=== PATIENT | female | born 1935 | race Caucasian/White ===

== ENCOUNTER 2017-05-09 09:12 | Outpatient (CLI) | payer MEDICARE, MEDICAID ==
[2017-05-09 11:23] LABS: #Basophils 0.1 thou/uL (0.0-0.2); #Eosinphils 0.4 thou/uL (0.0-0.7); #Lymphocytes 1.6 thou/uL (1.20-3.40); #Monocytes 0.6 thou/uL (0.11-0.59); #Neutrophils 5.1 thou/uL (1.40-6.50); %Basophils 1.3 % (0.0-1.0); %Eosinophils 5.6 % (0.0-10.0); %Lymphocytes 19.9 % (21.0-51.0); %Monocytes 7.9 % (0.0-10.0); %Neutrophils 65.3 % (42.0-75.0); Hemoglobin 14.9 g/dL (12.0-16.0); Mean Corpuscular Hemoglobin 30.9 pg (27.0-31.0); Mean Corpuscular Volume 90.8 fl (81.0-99.0); Mean Platelet Volume 6.5 fL (7.4-10.4); Platelet Count 246 thou/uL (130-400); RBC Distribution Width 12.8 % (11.5-14.5); Red Blood Cell (RBC) Count 4.82 mill/uL (4.20-5.40); White Blood Cell (WBC) Count 7.8 thou/uL (4.8-10.8)
[2017-05-09 11:34] LABS: ALT (SGPT) 20 U/L (8-55); AST (SGOT) 17 U/L (5-34); Albumin 4.1 g/dL (3.4-4.8); Alkaline Phosphatase 98 U/L (40-150); Anion Gap 15 mmol/L (10-20); BUN (Urea Nitrogen) 15 mg/dL (9.8-20.1); Bilirubin, Total 0.6 mg/dL (0.2-1.2); Calc. Creatinine Clearance 0 mL/min (70-130); Calcium 9.2 mg/dL (7.8-10.44); Carbon Dioxide 27 mmol/L (23-31); Cardiac Risk 3.7 (Less than 4.5); Chloride 101 mmol/L (98-107); Cholesterol 194 mg/dl (< 200 Desired); Estimated GFR-MDRD 53; Globulin 2.9 g/dL (2.4-3.5); Glucose 99 mg/dL (83-110); HDL Cholesterol 52 mg/dL (>60 Neg Risk); LDL Cholesterol, Calculated 103 mg/dL; Potassium 4.3 mmol/L (3.5-5.1); Sodium 139 mmol/L (136-145); Triglycerides 193 mg/dL (Less than 150)
== END 2017-05-09 09:13 | disposition home or self-care (01) ==
LOC: HPCALD 09:12
PROVIDERS: ATTEND Family Medicine
DX: I25.10 Atherosclerotic heart disease of native coronary artery without angina pectoris (principal); I10 Essential (primary) hypertension
CPT/HCPCS: 36415; 80053; 80061; 84443; 85025

== ENCOUNTER 2017-06-18 12:03 | Outpatient (CLI) | payer MEDICARE, MEDICAID ==
--- NOTE | 2017-06-18 21:25 | RAD ---
LUMBAR SPINE FIVE VIEWS 06/18/17 The bones are osteoporotic which make fine detail difficult to see in this patient. On the lateral v iew, there appears to be some very slight compression and sclerosis of the superior end plate of L1. I cannot tell if this new or old. No old films were available for comparison. Slight anterolisthesi s of L3 on L4 appears to be due to facet arthritis which is significant here, but even worse at L4-L 5 where there is also some anterolisthesis. Slight disc space narrowing is seen at L4-L5. The remain murtaza of the spine shows some mild arthritic change. Very dense calcification of the aorta is noted. N o abnormalities of the SI joints were appreciated. IMPRESSION: 1. Osteoporosis limits fine detail. 2. Slight compression of superior end plate of L3, age indeterminate. MRI could date this jordan r if that is possible. 3. Extensive degenerative changes, worse in the facet joints at L4-L5. Other findings as listed above. POS: HOME
== END 2017-06-18 12:04 | disposition home or self-care (01) ==
LOC: BURRAD 12:03
PROVIDERS: ATTEND Family Medicine
DX: S30.0XXA Contusion of lower back and pelvis, initial encounter (principal); M47.816 Spondylosis without myelopathy or radiculopathy, lumbar region; M81.0 Age-related osteoporosis without current pathological fracture; G95.20 Unspecified cord compression
CPT/HCPCS: 72110

== ENCOUNTER 2017-08-26 08:32 | Outpatient (CLI) | payer MEDICARE, MEDICAID ==
--- NOTE | 2017-08-26 22:57 | CT ---
CT OF THE ABDOMEN WITHOUT CONTRAST: Date: 08-26-[address] of the abdomen was performed. Axial slices were acquired and then coronal and sagit canelo reconstructions were done. FINDINGS: There are numerous calcified granulomas in a normal sized spleen. The liver has one or two small joel cifications in it. The liver is normal in size. There is no sign of mass, dilated ducts, or other pa thological change. It is normal in appearance. The gallbladder does have gallstones in it, however. The lung bases are clear. No renal masses are seen. Renal calcifications are actually probably all v ascular in nature. The patient has severe arterial sclerosis which extends well out into the renal v essels. The adrenal glands appear normal. The pancreas is very atrophic with no mass seen. The aorta is densely calcified. Its maximal diameter at the aortic hiatus is about 3 cm. It dilates slightly in the mid-abdominal region and has a maximal diameter of 2.2 cm just above the bifurcation. Both co mmon iliac arteries are densely calcified. Degenerative changes are seen in the visible portions of the lumbar spine. There is anterior russ sharon fracture of L3 which has compressed somewhat further since the study of 06-25-17 done at [facility]. There is slight retrolisthesis of the vertebrae as before. The AP diameter of the spinal ca nal at this level narrows to about 9 mm. IMPRESSION: 1. Normal hepatic size with no intrahepatic abnormality seen. Some calcified granulomas in the liver and spleen, primarily the spleen. 2. Gallstones. 3. Severe arteriosclerosis. 4. Known L3 compression fracture which has compressed slightly further than on the 06-16-17. POS: HOME
== END 2017-08-26 08:33 | disposition home or self-care (01) ==
LOC: BURCT 08:32
PROVIDERS: ATTEND Internal Medicine Gastroenterology
DX: R79.89 Other specified abnormal findings of blood chemistry (principal); D73.89 Other diseases of spleen; K76.89 Other specified diseases of liver; K80.20 Calculus of gallbladder without cholecystitis without obstruction; I70.90 Unspecified atherosclerosis; S32.039S Unspecified fracture of third lumbar vertebra, sequela
CPT/HCPCS: 74150

== ENCOUNTER 2018-05-03 12:12 | Emergency (ER) | payer MEDICARE, MEDICAID ==
[2018-05-03 12:51] LABS: Hemoglobin 6.8 g/dL (12.0-16.0); Mean Corpuscular Hemoglobin 21.2 pg (27.0-31.0); Mean Corpuscular Volume 66.4 fL (78.0-98.0); Mean Platelet Volume 5.3 fL (7.4-10.4); Platelet Count 500 thou/uL (130-400); RBC Distribution Width 14.7 % (11.5-14.5); Red Blood Cell (RBC) Count 3.18 mill/uL (4.20-5.40); White Blood Cell (WBC) Count 6.8 thou/uL (4.8-10.8)
[2018-05-03 13:06] LABS: ALT (SGPT) 8 U/L (8-55); AST (SGOT) 11 U/L (5-34); Albumin 3.7 g/dL (3.4-4.8); Alkaline Phosphatase 71 U/L (40-150); Anion Gap 15 mmol/L (10-20); BUN (Urea Nitrogen) 13 mg/dL (9.8-20.1); Bilirubin, Total 0.6 mg/dL (0.2-1.2); Calc. Creatinine Clearance 0 mL/min (70-130); Carbon Dioxide 27 mmol/L (23-31); Chloride 96 mmol/L (98-107); Estimated GFR-MDRD 44; Globulin 3.9 g/dL (2.4-3.5); Glucose 120 mg/dL (83-110); Potassium 4.3 mmol/L (3.5-5.1); Protein, Total 7.6 g/dL (6.0-8.3); Sodium 134 mmol/L (136-145)
[2018-05-03 13:12] LABS: #Basophils 0.1 thou/uL (0.0-0.2); #Eosinphils 0.4 thou/uL (0.0-0.7); #Lymphocytes 0.8 thou/uL (1.20-3.40); #Monocytes 0.5 thou/uL (0.11-0.59); #Neutrophils 4.9 thou/uL (1.40-6.50); %Eosinophils 5.8 % (0.0-10.0); %Lymphocytes 11.8 % (21.0-51.0); %Monocytes 7.5 % (0.0-10.0); %Neutrophils 72.8 % (42.0-75.0); Basophilic Stippling SLIGHT = 1-2 cells (100X) (None Seen); Elliptocytes SLIGHT = 2-5 cells (100X) (0-1/hpf); Eosinophils 5 % (0-10); Hypochromia MODERATE=16-30 cells (100X) (0-5/hpf); Lymphocytes 9 % (21-51); MDiff Complete? YES; Microcytosis MARKED = >30 cells (100X) (0-5/hpf); Monocytes 2 % (0-10); Neutrophil 81 % (42-75); Reflex for Review?? NO; Stomatocytes SLIGHT = 2-5 cells (100X) (0-1/hpf)
[2018-05-03 13:16] LABS: Bilirubin Negative (Negative); Blood, Urine Negative (Negative); Clarity Clear (Clear); Glucose, Urine (Dipstick) Negative (Negative); Leukocyte Trace (Negative); Nitrite Negative (Negative); Protein, Urine (Dipstick) 30 mg/dL (Neg-Trace); Specific Gravity, Urine 1.015 (1.005-1.030); Urobilinogen 0.2 mg/dL (0.2-1.0); pH, Urine 7.5 (5.0-9.0)
[2018-05-03 13:21] LABS: Bacteria/HPF Rare-Few HPF (None Seen); Crystals/HPF 2+ AMORPH PHOS HPF (Negative); RBC/HPF 0-3 HPF (0-3); Squamous Epithelial 0-3 HPF (0-3); WBC/HPF 0-3 HPF (0-3)
[2018-05-03 13:23] LABS: Troponin I 0.016 ng/mL (< 0.028)
== END 2018-05-03 12:55 | disposition home or self-care (01) ==
LOC: BURERS 12:12
DX: G30.9 Alzheimer's disease, unspecified (principal); F02.80 Dementia in other diseases classified elsewhere, unspecified severity, without behavioral disturbance, psychotic disturbance, mood disturbance, and anxiety; I25.10 Atherosclerotic heart disease of native coronary artery without angina pectoris; I73.9 Peripheral vascular disease, unspecified; E78.5 Hyperlipidemia, unspecified; I10 Essential (primary) hypertension; Z87.891 Personal history of nicotine dependence; Z79.01 Long term (current) use of anticoagulants; Z79.899 Other long term (current) drug therapy
CPT/HCPCS: 36415; 80053; 80162; 81003; 81015; 82553; 83880; 84484; 85025; 99283